=== PATIENT | male | born 1965 ===

== ENCOUNTER 2024-08-29 17:26 | Emergency (ER) | payer SELFPAY ==
--- NOTE | ~2024-08-29 | XR_ITS ---
EXAMINATION: XR chest 1V Exam Date/Time: 08/29/2024 18:20 [employer]PER[employer]OR [employer] HISTORY: weak Comparison: None. RESULT: Lines, tubes, and devices: None. Lungs and pleura: Clear. Cardiomediastinal silhouette: Calcified hilar node, otherwise unremarkable. Other: No acute osseous or upper abdominal finding. IMPRESSION: No acute cardiopulmonary process. Reviewed, dictated and finalized at location [facility]
--- NOTE | 2024-08-29 17:35 | ECG_ITS ---
Test Date: 2024-08-29 18:01:49 Measurements Intervals [place] Rate: 92 P: 40 GA: 147 QRS: -7 QRSD: 84 T: 27 QT: 337 QTc: 419 Interpretive Statements SINUS RHYTHM ANTERIOR INFARCT, AGE INDETERMINATE CONSIDER INFERIOR INFARCT, AGE INDETERMINATE ABNORMAL ECG No previous ECG available for comparison Electronically Signed On 08-29-2024 19:07:28 [employer]ACHINE [employer] by Shimon Adam D.O.
[2024-08-29 17:36] VITALS: BP 122/83; PULSE 100; RESP 17; TEMP 36.6; O2SAT 95
--- NOTE | 2024-08-29 17:36 | ED.RECABL ---
HPI - Recheck/Abnormal Lab/Rx General Chief Complaint: Recheck/Abnormal Lab/Rx Stated Complaint: out of insulin Focused HPI:59 y/o M presents to the ED for weakness, dizziness and to have his insulin refilled. Patient states he lives in [place] but has been staying in a motel here visiting his knees. He used the last of his insulin today is requesting a refill. He is taking 22 units of insulin lispro twice daily. He has not established with a PCP. He is reporting diffuse weakness and some dizziness. Denies chest pain or shortness of breath, cough or congestion, fever, N/V/D. GENERAL: Well-appearing, well-nourished, and in no acute distress. HEAD: Normocephalic, atraumatic. CHEST: Clear to auscultation. ?No respiratory distress. HEART: Regular rate and rhythm.? NEURO: ?Alert and oriented x3. Patient screened in triage and initial orders placed.? ?Additional care and disposition to be based upon?diagnostic testing and treatment. Course Vital Signs Vital signs: Vital Signs Temperature 98 F 08/29/24 17:36 Pulse Rate 100 08/29/24 17:36 Respiratory Rate 17 08/29/24 17:36 Blood Pressure 122/83 08/29/24 17:36 Pulse Oximetry 95 08/29/24 17:36 Temperature 98 F 08/29/24 17:36 Pulse Rate 100 08/29/24 17:36 Respiratory Rate 17 08/29/24 17:36 Blood Pressure 122/83 08/29/24 17:36 Pulse Oximetry 95 08/29/24 17:36 [facility] - Recheck/Abnormal Lab/Rx Lab Data 08/29/24 18:05 08/29/24 18:05 Labs: Lab Results 08/29/24 Range/Units 18:05 WBC 8.8 (4.5-10.0) K/mm3 RBC 5.95 (4.6-6.20) M/mm3 Hgb 16.4 (14.0-18.0) g/dL Hct 51.4 (42.0-52.0) % MCV 86.4 (80-100) fl MCH 27.6 (26-34) pg MCHC 31.9 L (32-36) g/dl RDW 12.4 (11.5-14.5) % Plt Count 160 (150-375) k/mm3 MPV 10.9 H (7.4-10.4) fl Immature Gran % (Auto) 0.8 H (0-0.5) % Neut % (Auto) 59.3 (45.5-73.1) % Lymph % (Auto) 32.9 (18.3-44.2) % [place] % (Auto) 4.8 (2.6-8.5) % Eos % (Auto) 1.7 (0-4.4) % Baso % (Auto) 0.5 (0.2-1.2) % Lymph # (Auto) 2.91 (0.9-3.2) K/mm3 [place] # (Auto) 0.4 (0.1-0.6) K/mm3 Eos # (Auto) 0.2 (0-0.3) K/mm3 Baso # (Auto) 0.0 (0.0-0.1) K/mm3 Abs Immat Gran (auto) 0.07 H (0.00-0.031) K/mm3 Absolute Neuts (auto) 5.3 (1.3-6.7) K/mm3 Absolute Nucleated RBC 0.000 (0.0-0.012) K/mm3 Nucleated RBC % 0.0 (0.0-0.2) % Sodium 132 L (137-145) mmol/L Potassium 4.3 (3.4-5.0) mmol/L Chloride 95 L (98-107) mmol/L Carbon Dioxide 22 (22-30) mmol/L Anion Gap 15 H (4-12) mmol/L BUN 19 (9-20) mg/dL Creatinine 1.43 H (0.7-1.3) mg/dL Estim Creat Clear Calc 63 ml/min Estimated GFR 50 L (59 - ) Glucose 447 H (65-110) mg/dL Calcium 10.2 (8.4-10.2) mg/dL Magnesium 1.8 (1.6-2.3) mg/dL Total Bilirubin 0.9 (0.2-1.3) mg/dL AST 33 (17-59) U/L ALT 48 (6-50) U/L Alkaline Phosphatase 136 H (38-126) U/L Total Protein 8.0 (6.3-8.2) g/dL Albumin 4.7 (3.5-5.1) g/dL Influenza A (RT-PCR) Negative (Negative) Influenza B (RT-PCR) Negative (Negative) RSV (RT-PCR) Negative (Negative) SARS-CoV-2 RNA (RT-PCR) Negative (Negative) Discharge Plan Discharge Clinical Impression: Encounter for medication refill Patient Disposition: [facility] After Seen by Prov Condition: Stable Patient Language: Indonesian Follow-up/Referrals: PHYSICIAN NOT ON STAFF,NONSTAFF [Primary Care Provider] -
[2024-08-29 18:13] LABS: Basophils Percent Auto 0.5 % (0.2-1.2); Eosinophils Absolute Auto 0.2 K/mm3 (0-0.3); Eosinophils Percent Auto 1.7 % (0-4.4); Hematocrit 51.4 % (42.0-52.0); Hemoglobin 16.4 g/dL (14.0-18.0); Immature Granulocyte Absolute 0.07 K/mm3 (0.00-0.031); Immature Granulocyte Percent A 0.8 % (0-0.5); Lymphocytes Absolute Auto 2.91 K/mm3 (0.9-3.2); Lymphocytes Percent Auto 32.9 % (18.3-44.2); Mean Corpuscular HGB Conc 31.9 g/dl (32-36); Mean Corpuscular Hemoglobin 27.6 pg (26-34); Mean Corpuscular Volume 86.4 fl (80-100); Mean Platelet Volume 10.9 fl (7.4-10.4); Monocytes Absolute Auto 0.4 K/mm3 (0.1-0.6); Monocytes Percent Auto 4.8 % (2.6-8.5); Neutrophils Absolute Auto 5.3 K/mm3 (1.3-6.7); Neutrophils Percent Auto 59.3 % (45.5-73.1); Platelet Count Result 160 k/mm3 (150-375); Red Blood Count 5.95 M/mm3 (4.6-6.20); Red Cell Distribution Width 12.4 % (11.5-14.5); White Blood Count 8.8 K/mm3 (4.5-10.0)
[2024-08-29 18:24] LABS: Magnesium 1.8 mg/dL (1.6-2.3)
[2024-08-29 18:25] LABS: Alanine Aminotransferase 48 U/L (6-50); Albumin Level 4.7 g/dL (3.5-5.1); Alkaline Phosphatase 136 U/L (38-126); Anion Gap 15 mmol/L (4-12); Aspartate Amino Transferase 33 U/L (17-59); Bilirubin,Total 0.9 mg/dL (0.2-1.3); Blood Urea Nitrogen 19 mg/dL (9-20); Calcium 10.2 mg/dL (8.4-10.2); Carbon Dioxide 22 mmol/L (22-30); Chloride 95 mmol/L (98-107); Estimated CRCL calculation 63 ml/min; Estimated Glomerular Filt Rate 50; Glucose 447 mg/dL (65-110); Potassium 4.3 mmol/L (3.4-5.0); Sodium 132 mmol/L (137-145)
[2024-08-29 18:51] LABS: Influenza A QL RT-PCR Negative (Negative); Influenza B QL RT-PCR Negative (Negative); RSV RNA, RT-PCR Negative (Negative); SARS-CoV-2 RNA PCR Negative (Negative)
--- NOTE | 2024-08-29 23:57 | PC.NURSE ---
Room call x1, no answer.
== END 2024-08-30 00:50 | disposition left against medical advice (07) ==
LOC: ANHED 08-30 00:42
PROVIDERS: Emergency Provider Physician Assistant
DX: R53.1 Weakness (principal); Z76.0 Encounter for issue of repeat prescription; R94.31 Abnormal electrocardiogram [ECG] [EKG]
CPT/HCPCS: 36415; 71045; 80053; 83735; 85025; 87637; 93005; 99283